=== PATIENT | female | born 1940 | race Caucasian/White ===

== ENCOUNTER 2017-05-05 10:21 | Emergency (ER) | payer MEDICARE ==
[~2017-05-05] VITALS: Ht 147.3 cm; Wt 73.7 kg
[~2017-05-05 10:21] MED LIST: APIX5TAB3 PO; ASPI-611 PO; ATEN50TA PO; CALC500T11 PO; CETI-102 PO; CHOL100044 PO; DILT180C95 PO; DULO30CA51 PO; FOLI1TAB16 PO; LOSA25TA96 PO; METF500T7 PO; OMEP20CA10 PO; POTA10TA15 PO; ROSU10TA PO; SITA100T11 PO; UBID100T7 PO
[2017-05-05] MEDS ORDERED: metoprolol tartrate 1mg/ml inj IV ONE ×2 (11:00→12:05)
[2017-05-05] MEDS ORDERED: normal saline 1000ML IV soln IVB ONE (11:00)
[2017-05-05 11:16] LABS: BASOPHILS % (AUTO) 0.5 % (0-1); EOSINOPHILS # (AUTO) 0.3 X10'3 (0-0.9); EOSINOPHILS % (AUTO) 3.7 % (0-6); HEMATOCRIT 38.4 % (35.0-45.0); LYMPHOCYTES # (AUTO) 2.2 X10'3 (1.1-4.8); LYMPHOCYTES % (AUTO) 26.9 % (21-51); MEAN CORPUSCULAR HEMOGLOBIN 28.7 PG (27.0-31.0); MEAN CORPUSCULAR HGB CONC 33.9 % (33.0-36.5); MEAN CORPUSCULAR VOLUME 84.7 FL (78-98); MEAN PLATELET VOLUME 9.6 FL (7.4-10.4); MONOCYTES # (AUTO) 0.7 X10'3 (0-0.9); MONOCYTES % (AUTO) 8.8 % (2-12); NEUTROPHILS # (AUTO) 4.9 X10'3 (1.8-7.7); NEUTROPHILS % (AUTO) 60.1 % (42-75); PLATELET COUNT 187 X10'3 (140-440); RED BLOOD COUNT 4.54 X10'6 (4.20-5.60); RED CELL DISTRIBUTION WIDTH 14.2 % (11.5-14.5); WHITE BLOOD COUNT 8.1 X10'3 (4.5-11.0)
[2017-05-05 11:27] LABS: INR 1.1 INR; PARTIAL THROMBOPLASTIN TIME 32 SECONDS (22-32); PROTHROMBIN TIME 11.4 SECONDS (9.0-12.0)
[2017-05-05 11:30] LABS: ALANINE AMINOTRANSFERASE 18 U/L (12-78); ALBUMIN 3.3 G/DL (3.4-5.0); ALBUMIN/GLOBULIN RATIO 0.9 (1.1-1.5); ALKALINE PHOSPHATASE 74 IU/L (46-116); ANION GAP 8 (8-16); ASPARTATE AMINO TRANSFERASE 17 U/L (10-37); BILIRUBIN,TOTAL 0.3 MG/DL (0.1-1.0); BLOOD UREA NITROGEN 20 MG/DL (7-18); BUN/CREATININE RATIO 18.5 (6.6-38.0); CALCIUM 8.8 MG/DL (8.5-10.1); CHLORIDE 105 MMOL/L (99-107); CREATININE 1.08 MG/DL (0.40-0.90); GLUCOSE 154 MG/DL (70-104); POTASSIUM 4.5 MMOL/L (3.5-5.1); SODIUM 143 MMOL/L (135-145); TOTAL CARBON DIOXIDE 30.4 MMOL/L (24-32); eGFR 49 ML/MIN
[2017-05-05] MEDS ORDERED: METO50TA17 PO (11:48)
[2017-05-05] MEDS ORDERED: metoprolol tartrate 50mg tablet PO PRN (12:05)
[2017-05-05 14:57] VITALS: BP 133/87
== END 2017-05-05 15:40 | disposition home or self-care (01) ==
LOC: ER 10:21
DX: R00.0 Tachycardia, unspecified (principal); I10 Essential (primary) hypertension; I25.10 Atherosclerotic heart disease of native coronary artery without angina pectoris; E11.9 Type 2 diabetes mellitus without complications; M19.90 Unspecified osteoarthritis, unspecified site; Z88.1 Allergy status to other antibiotic agents; Z88.0 Allergy status to penicillin; Z88.2 Allergy status to sulfonamides; Z88.8 Allergy status to other drugs, medicaments and biological substances; Z79.82 Long term (current) use of aspirin
CPT/HCPCS: 36415; 71045; 80053; 84484; 85025; 85610; 85730; 96374; 96376; 99285; J3490

== ENCOUNTER 2017-07-12 09:04 | Outpatient (CLI) | payer MEDICARE ==
[~2017-07-12 09:04] MED LIST changes: +METO50TA17 PO
== END 2017-07-12 23:59 | disposition home or self-care (01) ==
LOC: VAS 09:04
PROVIDERS: ATTEND Surgery
DX: I65.23 Occlusion and stenosis of bilateral carotid arteries (principal); R09.89 Other specified symptoms and signs involving the circulatory and respiratory systems
CPT/HCPCS: 93880; 93922; 93925

== ENCOUNTER 2017-08-17 10:32 | Emergency (ER) | payer MEDICARE ==
[~2017-08-17] VITALS: Ht 144.8 cm; Wt 73.0 kg
[2017-08-17 11:09] VITALS: BP 149/49
== END 2017-08-17 11:18 | disposition home or self-care (01) ==
LOC: ER 10:32
DX: I10 Essential (primary) hypertension (principal); H10.31 Unspecified acute conjunctivitis, right eye; I25.10 Atherosclerotic heart disease of native coronary artery without angina pectoris; G89.29 Other chronic pain; E11.9 Type 2 diabetes mellitus without complications; M19.90 Unspecified osteoarthritis, unspecified site; I48.91 Unspecified atrial fibrillation; Z90.49 Acquired absence of other specified parts of digestive tract; Z95.1 Presence of aortocoronary bypass graft; Z98.890 Other specified postprocedural states; Z90.89 Acquired absence of other organs; Z88.0 Allergy status to penicillin; Z88.1 Allergy status to other antibiotic agents; Z88.2 Allergy status to sulfonamides; Z88.8 Allergy status to other drugs, medicaments and biological substances; Z79.82 Long term (current) use of aspirin; Z79.84 Long term (current) use of oral hypoglycemic drugs; Z79.899 Other long term (current) drug therapy
CPT/HCPCS: 99281

== ENCOUNTER 2018-02-04 10:23 | Emergency (ER) | payer MEDICARE ==
[~2018-02-04] VITALS: Ht 147.3 cm; Wt 69.1 kg
[2018-02-04] MEDS ORDERED: normal saline 1000ML IV soln IVB ONE (10:35)
[2018-02-04 11:37] LABS: BASOPHILS # (AUTO) 0.1 X10'3 (0-0.2); BASOPHILS % (AUTO) 0.7 % (0-1); EOSINOPHILS % (AUTO) 0.3 % (0-6); HEMATOCRIT 36.8 % (35.0-45.0); LYMPHOCYTES # (AUTO) 1.9 X10'3 (1.1-4.8); LYMPHOCYTES % (AUTO) 16.4 % (21-51); MEAN CORPUSCULAR HEMOGLOBIN 27.4 PG (27.0-31.0); MEAN CORPUSCULAR HGB CONC 32.6 % (33.0-36.5); MEAN CORPUSCULAR VOLUME 84.1 FL (78-98); MEAN PLATELET VOLUME 9.3 FL (7.4-10.4); MONOCYTES # (AUTO) 0.7 X10'3 (0-0.9); MONOCYTES % (AUTO) 6.2 % (2-12); NEUTROPHILS # (AUTO) 8.8 X10'3 (1.8-7.7); NEUTROPHILS % (AUTO) 76.4 % (42-75); PLATELET COUNT 292 X10'3 (140-440); RED BLOOD COUNT 4.37 X10'6 (4.20-5.60); RED CELL DISTRIBUTION WIDTH 14.2 % (11.5-14.5); WHITE BLOOD COUNT 11.6 X10'3 (4.5-11.0)
[2018-02-04 12:05] LABS: ALANINE AMINOTRANSFERASE 28 U/L (12-78); ALBUMIN 2.2 G/DL (3.4-5.0); ALBUMIN/GLOBULIN RATIO 0.4 (1.1-1.5); ALKALINE PHOSPHATASE 120 IU/L (46-116); ANION GAP 12 (8-16); ASPARTATE AMINO TRANSFERASE 33 U/L (10-37); BILIRUBIN,TOTAL 0.4 MG/DL (0.1-1.0); BLOOD UREA NITROGEN 8 MG/DL (7-18); BUN/CREATININE RATIO 8.2 (6.6-38.0); CALCIUM 8.5 MG/DL (8.5-10.1); CHLORIDE 92 MMOL/L (99-107); CREATININE 0.98 MG/DL (0.40-0.90); GLUCOSE 149 MG/DL (70-104); LIPASE 126 U/L (73-393); POTASSIUM 3.2 MMOL/L (3.5-5.1); SODIUM 130 MMOL/L (135-145); TOTAL CARBON DIOXIDE 26.3 MMOL/L (24-32); TOTAL PROTEIN 7.1 G/DL (6.4-8.2); eGFR 55 ML/MIN
[2018-02-04] MEDS ORDERED: morphine 4 MG/ML inj SYRINge IV ONE (12:10)
[2018-02-04 12:15] LABS: CLARITY,URINE CLEAR (Clear); COLOR,URINE YELLOW (Yellow); GLUCOSE, URINE NEGATIVE (Neg); KETONES,URINE NEGATIVE (Neg); LEUKOCYTE ESTERASE ,URINE NEGATIVE (Neg); NITRITES, URINE NEGATIVE (Neg); OCCULT BLOOD,URINE TRACE-INTACT (Neg); PROTEIN,URINE NEGATIVE (Neg); UROBILINOGEN,URINE 0.2 E.U/dL (0.2-1.0)
[2018-02-04 12:21] LABS: UA COLLECTION TYPE CLN CATCH MIDSTREAM
[2018-02-04 12:27] LABS: RBC,URINE 0-2 /HPF (0-2); SQUAMOUS EPITHELIAL CELL,UR FEW /LPF (FEW); WBC,URINE 0-4 /HPF (0-4)
[2018-02-04 12:28] LABS: BACTERIA,URINE FEW /HPF (Neg)
[2018-02-04 12:32] LABS: PLATELET ESTIMATE NORMAL; TOTAL CELLS COUNTED 100
[2018-02-04 12:33] LABS: TOXIC GRANULATION 2+; TOXIC VACUOLATION 2+
[2018-02-04] MEDS ORDERED: orphenadrine citrate 60mg/2ml inj. IM ONE (13:40)
[2018-02-04] MEDS ORDERED: HYDR-4383 PO (13:52)
[2018-02-04] MEDS ORDERED: ORPH100T2 PO (13:52)
[2018-02-04 14:41] VITALS: BP 154/72
== END 2018-02-04 14:45 | disposition home or self-care (01) ==
LOC: ER 10:24
DX: G89.29 Other chronic pain (principal); M54.89 Other dorsalgia; R10.9 Unspecified abdominal pain; I25.10 Atherosclerotic heart disease of native coronary artery without angina pectoris; I48.91 Unspecified atrial fibrillation; E11.9 Type 2 diabetes mellitus without complications; Z90.49 Acquired absence of other specified parts of digestive tract; Z98.61 Coronary angioplasty status; Z98.891 History of uterine scar from previous surgery; Z88.1 Allergy status to other antibiotic agents; Z88.0 Allergy status to penicillin; Z88.2 Allergy status to sulfonamides; Z88.8 Allergy status to other drugs, medicaments and biological substances; Z79.82 Long term (current) use of aspirin; Z79.84 Long term (current) use of oral hypoglycemic drugs; Z79.899 Other long term (current) drug therapy
CPT/HCPCS: 36415; 71045; 80053; 81001; 83690; 85025; 93005; 96372; 96374; 99284; J2270; J2360; J7030

== ENCOUNTER 2018-03-01 11:18 | Emergency (ER) | payer MEDICARE ==
[~2018-03-01] VITALS: Ht 142.2 cm; Wt 67.7 kg
[~2018-03-01 11:18] MED LIST changes: +HYDR-4383 PO; +ORPH100T2 PO
[2018-03-01 12:38] VITALS: BP 166/72
[2018-03-01] MEDS ORDERED: normal saline 1000ML IV soln IVB ONE (13:20)
[2018-03-01] MEDS ORDERED: ketorolac tromethamine 15mg/ml inj. IV ONE (13:20)
[2018-03-01] MEDS ORDERED: fentaNYL/PF 50MCG/1 ML 2ML syringe IV ONE (13:20)
[2018-03-01] MEDS ORDERED: HYDR-3965 PO (14:39)
== END 2018-03-01 14:59 | disposition home or self-care (01) ==
LOC: ER 11:19
DX: G89.29 Other chronic pain (principal); M54.9 Dorsalgia, unspecified; I48.91 Unspecified atrial fibrillation; I25.10 Atherosclerotic heart disease of native coronary artery without angina pectoris; E11.9 Type 2 diabetes mellitus without complications; M19.90 Unspecified osteoarthritis, unspecified site; Z90.49 Acquired absence of other specified parts of digestive tract; Z98.890 Other specified postprocedural states; Z88.1 Allergy status to other antibiotic agents; Z88.0 Allergy status to penicillin; Z88.2 Allergy status to sulfonamides; Z88.8 Allergy status to other drugs, medicaments and biological substances; Z79.82 Long term (current) use of aspirin; Z79.84 Long term (current) use of oral hypoglycemic drugs; Z79.899 Other long term (current) drug therapy
CPT/HCPCS: 96374; 96375; 99284; J1885; J3010; J7030